=== PATIENT | female | born 1975 | race Caucasian/White ===

== ENCOUNTER 2025-07-24 15:15 | Emergency (ER) | payer MEDICARE, SELFPAY ==
[2025-07-24 15:26] VITALS: BP 136/81
--- NOTE | 2025-07-24 17:18 | ED.SKININJ ---
HPI-Injury
General
Chief Complaint: Skin Problem
Source: patient
Exam Limitations: none
Time Seen by Provider: 07/24/25 16:44
Nursing documentation reviewed up to this point in time: agreed with
History of Present Illness-Injury
Is this injury a work related problem?: No
Is pt an associate of [facility]?: No
Initial Injury comments:
Patient to the emergency department for evaluation of skin abscess to left axilla. She states she has had swelling there for some time but site began to get more painful and red over the past few days. She was seen at urgent care today. She
states that she was given a prescription for Bactrim DS and advised to come to the emergency department for ultrasound imaging and I&D of abscess. She denies any fever or chills. She has a prior history of MRSA. States she was diagnosed with MRSA
to her lower extremity this past summer. Brought self to the emergency department for evaluation.
Past History
Past History
ED Past Medical History: Psychiatric
Review of Systems
Review of Systems
Allergies reviewed?: Yes
All Other Systems: ROS reviewed and negative except as documented in HPI and ROS
Constitutional: Reports no symptoms
Musculoskeletal: Reports no symptoms
Skin: Reports other (Skin abscess left axilla)
Neurological: Reports no symptoms
Psychiatric: Reports no symptoms
Skin Exam
Abscess
Left axilla:
Description of abscess: fluctuant and draining
Surrounding skin:: inflammed at abscess site
Phy Exam
General Physical Exam
General Presentation: well appearing and no apparent distress
General age: appears stated age
General Skin: warm and dry
General Habitus: normal
General Mental: alert
Musculoskeletal Exam
Musculoskeletal Exam: full ROM and neuro vasc intact
Skin Exam
Skin Exam: warm/dry and no rash
Psychiatric Exam
Psychiatric Exam: normal mood/affect
Course
Orders/Labs/Results
Orders:
Orders
07/24/25 17:15
Wound Culture [Wound/Abscess/Other Culture] Urgent
SANTIAGO Source: Axilla
Specimen Description:
Sulfamethox./Trimethoprim Ds [Bactrim Ds 800 mg/160 mg] 1 tablet .ROUTE .STK-MED ONE
Sulfamethox./Trimethoprim Ds [Bactrim Ds 800 mg/160 mg] 1 tablet PO NOW STA
Vital Signs
Initial and Last Documented VS:
Initial Vital Signs
Temp Pulse Resp BP Pulse Ox
98.1 F 109 20 136/81 99
07/24/25 15:26 07/24/25 15:26 07/24/25 15:26 07/24/25 15:26 07/24/25 15:26
Last Documented Vital Signs
Temp Pulse Resp BP Pulse Ox
98.1 F 109 20 136/81 99
07/24/25 15:26 07/24/25 15:26 07/24/25 15:26 07/24/25 15:26 07/24/25 15:26
Procedures
Incision/Drainage/Joint Aspiration
Left axilla:
Anethesia: 1% Lidocaine with Epi
Preparation: cleaned with Betadine
Type of procedure: incise and drain
Nature of site: abscess
Description of abscess: less than 3cm
Loculations broken up: Yes
How much fluid was obtained?: small amount
Fluid description: purulent
Treatment: left open for drainage and antibiotics started
*Pulse Oximetry
SaO2: 99
Oxygen Mode of Delivery: Room air
Patient hypoxic: no
*Critical Care Note
Total Time (30-74mins, 75-104mins- exclusive of procedures): Not Applicable
Update Note
Update Note:
Patient to the emergency department for evaluation of abscess to left axilla. She was evaluated in urgent care prior to arrival here. She was given a prescription for Bactrim DS and advised to come to the emergency department for imaging and I&D
of abscess. Abscess is small and localized to left axilla. Already draining purulent drainage. There is mild erythema surrounding abscess. Vital signs are stable and she remains afebrile. Abscess site was infiltrated with lidocaine 1%. Abscess
was opened using a #11 blade and large amount of purulent drainage expressed. Wound culture was obtained. Results are pending. She will continue wound care twice daily at home. Instructed on use of warm compresses to site. She will follow-up
with her family doctor in 1 to 2 days for wound check. She was given instructions on signs and symptoms to return to the emergency department. She is given prescription for Bactrim DS 1 tab p.o. twice daily by urgent care. She has not had a dose
yet so first dose was given in the emergency department. She is discharged home
ED Attending Note
-
Portions of this chart may have been created with voice recognition software.� Occasional wrong word or��sound alike� substitutions may have occurred due to the inherent limitations of voice recognition software.
Discharge Plan
Departure
Patient Disposition: Home (Routine Discharge)
Date of Disposition: 07/24/25
Time of Disposition: 17:16
Patient with high blood pressure during this ER visit?: No
Condition: Good
Covid-19: Not Applicable
Discharge Problem:
Abscess of skin
Instructions: Wound Care (DC), Skin Abscess
Activity Restrictions/Additional Instructions:
Continue the antibiotic as prescribed by urgent care. Follow-up with your family doctor in 1 to 2 days for wound check. Apply warm compresses to the abscess site 15 to 20 minutes at a time, 4-5 times daily. The abscess will continue to drain over
the next few days and this is normal. Return to the emergency department for fever/chills, increasing pain, redness, swelling of abscess site, or for any further concerns.
Interventions
Interventions:
*General Assessment Last Done: 07/24/25 15:26
*Neglect/Abuse Screening Last Done: 07/24/25 15:26
Discharge Date and Time
Print Language: WELSH
[2025-07-24] MEDS: BACTRIM DS 800 MG/160 MG 1 TABLET PO (17:19)
== END 2025-07-24 17:43 | disposition home or self-care (01) ==
LOC: EMR 15:15
PROVIDERS: EMERGENCY PHYSICIAN Emergency Medicine; FAMILY PHYSICIAN Internal Medicine
DX: L02.412 Cutaneous abscess of left axilla (principal); R56.9 Unspecified convulsions; Z86.14 Personal history of Methicillin resistant Staphylococcus aureus infection; Z88.8 Allergy status to other drugs, medicaments and biological substances
CPT/HCPCS: 99283; 10060; 87070; 87147; 87186; 87205